=== PATIENT | male | born 1970 ===

== ENCOUNTER 2016-09-29 16:33 | Emergency (ER) | payer OTHER ==
--- NOTE | 2016-09-29 16:53 | ED PDOC ---
Arrival/HPI - General Time Seen by Provider: 09/29/16 16:51 Historian: Patient - History of Present Illness Narrative History of Present Illness (Text): 09/29/16 16:52 46yo male with PMHx of hypertension and diabetes in ED for left ribs pain. States he fell down from a tree 8days , while cutting a tree. States he started having left sided rib pain last night with inspiration. Did not take any medication. Past Medical History - Provider Review Nursing Documentation Reviewed: Yes Family/Social History - Physician Review Nursing Documentation Reviewed: Yes Family/Social History: Unknown Family HX Allergies/Home Meds Allergies/Adverse Reactions: Allergies No Known Allergies Allergy (Verified 09/29/16 17:02) Review of Systems - Physician Review All systems were reviewed & negative as marked: Yes - Review of Systems Constitutional: Normal Eyes: Normal ENT: Normal Respiratory: Normal Cardiovascular: Normal Gastrointestinal: Normal Genitourinary Male: Normal Musculoskeletal: Arthralgias (Ribs pain) Skin: Normal Neurological: Normal Endocrine: Normal Hemo/Lymphatic: Normal Psychiatric: Normal Physical Exam Vital Signs Reviewed: Yes Vital Signs Temp Pulse Resp BP Pulse Ox 09/29/16 16:35 97.5 F L 82 18 165/99 H 96 Temperature: Afebrile Blood Pressure: Normal Pulse: Regular Respiratory Rate: Normal Appearance: Positive for: Well-Appearing, Non-Toxic, Comfortable Pain Distress: None Mental Status: Positive for: Alert and Oriented X 3 - Systems Exam Head: Present: Atraumatic, Normocephalic Pupils: Present: PERRL Extroacular Muscles: Present: EOMI Conjunctiva: Present: Normal Mouth: Present: Moist Mucous Membranes Neck: Present: Normal Range of Motion Respiratory/Chest: Present: Clear to Auscultation, Good Air Exchange, Tender to Palpation (Over left anterior ribs). No: Respiratory Distress, Accessory Muscle Use, Wheezes, Decreased Breath Sounds, Rales, Retracting, Rhonchi, Tachypneic Cardiovascular: Present: Regular Rate and Rhythm, Normal S1, S2. No: Murmurs Abdomen: Present: Normal Bowel Sounds. No: Tenderness, Distention, Peritoneal Signs Back: Present: Normal Inspection Upper Extremity: Present: Normal Inspection. No: Cyanosis, Edema Lower Extremity: Present: Normal Inspection. No: Edema Neurological: Present: GCS=15, CN II-XII Intact, Speech Normal Skin: Present: Warm, Dry, Normal Color. No: Rashes Psychiatric: Present: Alert, Oriented x 3, Normal Insight, Normal Concentration Medical Decision Making ED Course and Treatment: 09/29/16 18:44 Left ribs /CXR - No acute fracture noted. No PTX. PT requested ciarra a refill of his Metformin 1000mg and was given a refill. Xray result was DW the pt. He was DC home with a rx of Naprosyn and flexeril Advised to f/u with his PMd. TRT ED for any new or worsening symptoms. - RAD Interpretation Radiology Orders: 09/29/16 17:02 RIBS LEFT & PA CHEST [RAD] Stat - Medication Orders Current Medication Orders: Discontinued Medications Cyclobenzaprine HCl (Flexeril) 10 mg PO STAT STA Stop: 09/29/16 17:04 Last Admin: 09/29/16 17:21 Dose: 10 mg Ketorolac Tromethamine (Toradol) 60 mg IM STAT STA Stop: 09/29/16 17:04 Last Admin: 09/29/16 17:17 Dose: 60 mg Disposition/Present on Arrival - Present on Arrival Any Indicators Present on Arrival: No History of DVT/PE: No History of Uncontrolled Diabetes: No Urinary Catheter: No History of Decub. Ulcer: No History Surgical Site Infection Following: None - Disposition Have Diagnosis and Disposition been Completed?: Yes Diagnosis: Medication refill, Rib pain Disposition: HOME/ ROUTINE Disposition Time: 18:00 Patient Plan: Discharge Condition: STABLE Discharge Instructions (ExitCare): Chest Pain (ED) Additional Instructions: Take medication as directed Follow up with your Doctor Return to ED for any new or worsening Prescriptions: Cyclobenzaprine [Cyclobenzaprine HCl] 10 mg PO TID #10 tab MetFORMIN [glucoPHAGE] 1,000 mg PO DAILY #30 tab Naproxen [Naprosyn] 500 mg PO BID #20 tab Referrals: Sofia Hagan MD [Primary Care Provider] - Follow up with primary
[2016-09-29 17:00] VITALS: BP 165/99; PULSE 82; RESP 18; TEMP 97.5; O2SAT 96
[2016-09-29 17:03] VITALS: BMI 74.7
--- NOTE | 2016-09-30 08:33 | RAD ---
PROCEDURE: Radiographs of the Chest and Left Ribs. HISTORY: rib pain COMPARISON: None available. TECHNIQUE: Frontal radiograph of the chest and multiple oblique radiographs of the left ribs were obtained. FINDINGS: LEFT RIBS: There is a small cortical lesion along the inferior surface of the left 4th rib. This has a lucent lytic appearance with a thin rim inferiorly and a sclerotic rim superiorly. The features are nonspecific and this could represent a benign or metastatic lesion. Clinical correlation is suggested LUNGS: Clear. PLEURA: No pneumothorax or pleural fluid. CARDIOVASCULAR: Normal sized heart. No pulmonary vascular congestion. OTHER FINDINGS: No evidence of rib fracture IMPRESSION: There is a small cortical lesion along the inferior surface of the left 4th rib. This has a lucent lytic appearance with a thin rim inferiorly and a sclerotic rim superiorly. The features are nonspecific and this could represent a benign or metastatic lesion. Clinical correlation is suggested
== END 2016-09-29 18:11 | disposition home or self-care (01) ==
LOC: ED 16:33
DX: Z76.0 Encounter for issue of repeat prescription (principal); R07.81 Pleurodynia
CPT/HCPCS: 71101; 96372; 99283; J1885